=== PATIENT | female | born 1990 | race Caucasian/White ===

== ENCOUNTER → 2023-02-13 | Outpatient (CLI) | payer OTHER ==
[~2023-02-13] MED LIST: CEPH500 PO; NUVA RING
== END | disposition home or self-care (01) ==
LOC: LAB SHORT 07:37 → PLD 07:37
DX: C44.319 Basal cell carcinoma of skin of other parts of face (principal); D23.61 Other benign neoplasm of skin of right upper limb, including shoulder; D23.72 Other benign neoplasm of skin of left lower limb, including hip
CPT/HCPCS: 88305